=== PATIENT | female | born 2000 | race Asian ===

== ENCOUNTER 2024-08-05 22:00 | Emergency (ER) | payer MEDICAID ==
[~2024-08-05] VITALS: Ht 157.5 cm; Wt 68.2 kg
[~2024-08-05 22:00] MED LIST: METO25 PO
[2024-08-05 22:49] VITALS: TEMP 98.3
[2024-08-05 23:00] LABS: COVID AG,FIA SOURCE NASAL SWAB
[2024-08-05 23:19] LABS: SARS-COV2 (COVID) ANTIGEN,FIA Negative (Negative)
[2024-08-05 23:21] LABS: INFLUENZA TYPE A NEGATIVE FOR TYPE A (NEGATIVE); INFLUENZA TYPE B NEGATIVE FOR TYPE B (NEGATIVE)
[2024-08-06 00:16] VITALS: BP 141/92; PULSE 82; RESP 14; O2SAT 100
[2024-08-06] MEDS: ACETAMINOPHEN/CODEINE 300-30 MG TABLET PO ONE (01:30)
[2024-08-06] MEDS: NEOMYCIN/POLYMYXIN B/HYDROCORT 10 ML OTIC SUSPENSION AS ONE (01:31)
[2024-08-06] MEDS ORDERED: IBUP-1554 PO (01:35)
[2024-08-06] MEDS ORDERED: ACET-2080 PO (01:35)
[2024-08-06] MEDS ORDERED: GUAIFDM PO (01:35)
== END 2024-08-06 02:54 | disposition home or self-care (01) ==
LOC: EMS 22:00
DX: H60.91 Unspecified otitis externa, right ear (principal); K52.9 Noninfective gastroenteritis and colitis, unspecified; Z79.899 Other long term (current) drug therapy; Z20.822 Contact with and (suspected) exposure to COVID-19
CPT/HCPCS: 84703; 87804; 99283

== ENCOUNTER 2024-10-08 07:03 | Emergency (ER) | payer MEDICAID ==
[~2024-10-08] VITALS: Ht 157.5 cm; Wt 68.0 kg
[~2024-10-08 07:03] MED LIST changes: +ACET-2080 PO; +GUAIFDM PO; +IBUP-1554 PO
[2024-10-08 08:57] LABS: APPEARANCE,URINE CLEAR (CLEAR); BILIRUBIN,URINE NEGATIVE (NEGATIVE); COLOR,URINE LIGHT YELLOW (YELLOW); GLUCOSE, URINE (UA) NEGATIVE (NEGATIVE); KETONES,URINE NEGATIVE (NEGATIVE); LEUKOCYTE ESTERASE ,URINE MODERATE (NEGATIVE); NITRATE,URINE POSITIVE (NEGATIVE); OCCULT BLOOD,URINE MODERATE (NEGATIVE); PH,URINE 5.5 (5.0-8.0); PROTEIN,URINE NEGATIVE (NEGATIVE); UROBILINOGEN,URINE <=1.0 mg/dL (<=1.0)
[2024-10-08 09:02] LABS: BACTERIA,URINE Moderate /HPF (None Seen)
[2024-10-08 09:19] VITALS: BP 126/83; PULSE 75; RESP 18; TEMP 98.2; O2SAT 100
[2024-10-08] MEDS ORDERED: AMOX500C2 PO (09:21)
[2024-10-08] MEDS ORDERED: CEPH-558 PO (09:21)
[2024-10-08] MEDS ORDERED: PHEN-846 PO (09:21)
== END 2024-10-08 09:42 | disposition home or self-care (01) ==
LOC: EMS 07:15
DX: H66.001 Acute suppurative otitis media without spontaneous rupture of ear drum, right ear (principal); N39.0 Urinary tract infection, site not specified; R04.0 Epistaxis; M54.50 Low back pain, unspecified; Z87.440 Personal history of urinary (tract) infections; Z79.899 Other long term (current) drug therapy
CPT/HCPCS: 81001; 87077; 87086; 87186; 99283